=== PATIENT | female | born 1970 | race Caucasian/White ===

== ENCOUNTER 2018-03-13 17:31 | Emergency (ER) | payer MEDICAID ==
[~2018-03-13] VITALS: Ht 149.9 cm; Wt 86.2 kg
[~2018-03-13 17:31] MED LIST: ACEDIPPM PO; ASPI325 PO; ATEN25 PO; Adipex-P37.5 MG PO; CIPR500 PO; CYCL10 PO; ESOM20; HYDMOR2 PO; HYDMOR4 PO; IBUP400 PO; KETO10 PO; OMEP40CA12 PO; OXYACE7.5T PO; PROM25 PO; RXHYDMOR2 PO; RXOXYACE PO; TAMS.4ER PO; TRAM50 PO; [UNRECOGNIZED DRUG - OTHER] PO
[2018-03-13 17:45] LABS: Source, Urine Clean Catch
[2018-03-13 17:48] LABS: Bilirubin, Urine Neg (Neg); Blood, Urine 2+ (Neg); Glucose Qualitative, Urine Neg (Neg); Ketones, Urine Neg (Neg); Leukocyte Esterase, Urine 2+ (Neg); Nitrite, Urine Neg (Neg); Protein, Urine 2+ (Neg); Specific Gravity, Urine 1.025 (1.003-1.022); Urobilinogen, Urine NORM (Normal)
[2018-03-13 17:54] LABS: Color, Urine Yellow (P-Yellow)
[2018-03-13 17:56] LABS: Bacteria Few /hpf; Squamous Epithelial Cells Few /hpf (Few)
[2018-03-13 17:57] LABS: Appearance, Urine Clear (Clear)
[2018-03-13 18:18] LABS: BASOPHILS ABSOLUTE AUTO 0.04 K/mm3 (0.00-0.23); BASOPHILS PERCENT AUTO 1 % (0-2); EOSINOPHILS ABSOLUTE AUTO 0.16 K/mm3 (0.00-0.68); EOSINOPHILS PERCENT AUTO 2 % (0-6); Hematocrit 43.9 % (33.0-51.0); Hemoglobin 14.9 g/dL (11.5-16.0); IMMATURE GRAN ABSOLUTE AUTO 0.01 K/mm3 (0.00-0.10); IMMATURE GRAN PERCENT AUTO 0 % (0-1); LYMPHOCYTES ABSOLUTE AUTO 1.99 K/mm3 (0.84-5.20); LYMPHOCYTES PERCENT AUTO 29 % (21-46); MONOCYTES ABSOLUTE AUTO 0.38 K/mm3 (0.16-1.47); MONOCYTES PERCENT AUTO 6 % (4-13); Mean Corpuscular HGB 30.3 pg (26.0-34.0); Mean Corpuscular HGB Conc 33.9 g/dL (31.5-36.5); Mean Corpuscular Volume 89 fL (80-100); Mean Platelet Volume 9.4 fL (9.1-12.4); NEUTROPHILS ABSOLUTE AUTO 4.32 K/mm3 (1.96-9.15); NEUTROPHILS PERCENT AUTO 63 % (41-73); Platelet Count 225 K/mm3 (150-400); RDW Coefficient Variation 11.9 % (11.7-14.2); RDW Standard Deviation 38.6 fL (35.1-46.3); Red Blood Cell Count 4.92 M/mm3 (3.80-5.20)
[2018-03-13 18:38] LABS: Alanine Aminotransfer (ALT/SGP 35 U/L (12-78); Albumin, Blood 3.9 g/dL (3.4-5.0); Albumin/Globulin Ratio 1.1 (0.8-1.8); Alk Phos 74 U/L (50-136); Anion Gap 10 mmol/L (6-16); Aspartate Aminotrans (AST/SGOT 10 U/L (12-37); Bilirubin, Total 1.3 mg/dL (0.1-1.0); Blood Urea Nitrogen 15 mg/dL (8-24); Bun/Creatinine Ratio 15.6 (12.0-20.0); CO2, Blood 25 mmol/L (21-32); Chloride, Blood 110 mmol/L (98-108); Creatinine, Blood 0.96 mg/dL (0.40-1.00); Globulin, Blood 3.6 g/dL (2.2-4.0); Glomerular Filtration Rate >60 (60-); Glucose, Blood 127 mg/dL (70-99); Potassium, Blood 3.7 mmol/L (3.5-5.5); Sodium, Blood 145 mmol/L (136-145); Total Protein, Blood 7.5 g/dL (6.4-8.2)
[2018-03-13] MEDS ORDERED: COMPAZINE10 MG PO (19:49)
[2018-03-13] MEDS ORDERED: Percocet 5-3251 EACH PO (19:49)
[2018-03-13] MEDS ORDERED: KETO10 PO (19:49)
[2018-03-13] MEDS ORDERED: Flomax0.4 MG PO (19:49)
== END 2018-03-13 20:52 | disposition home or self-care (01) ==
LOC: ER 17:31
PROVIDERS: Emergency Medicine
DX: N13.2 Hydronephrosis with renal and ureteral calculous obstruction (principal); I10 Essential (primary) hypertension
CPT/HCPCS: 36415; 74176; 80053; 81001; 81025; 85025; 87086; 96374; 96375; 96376; 99284; J1885; J2405; J3010

== ENCOUNTER 2022-01-17 10:31 | Emergency (ER) | payer OTHER ==
[~2022-01-17] VITALS: Ht 149.9 cm; Wt 101.6 kg
[~2022-01-17 10:31] MED LIST changes: +COMPAZINE10 MG PO; +Flomax0.4 MG PO; +Percocet 5-3251 EACH PO
[2022-01-17 11:13] LABS: BASOPHILS ABSOLUTE AUTO 0.02 K/mm3 (0.00-0.23); BASOPHILS PERCENT AUTO 0 % (0-2); EOSINOPHILS ABSOLUTE AUTO 0.01 K/mm3 (0.00-0.68); EOSINOPHILS PERCENT AUTO 0 % (0-6); Hematocrit 41.3 % (33.0-51.0); Hemoglobin 14.1 g/dL (11.5-16.0); IMMATURE GRAN ABSOLUTE AUTO 0.02 K/mm3 (0.00-0.10); IMMATURE GRAN PERCENT AUTO 0 % (0-1); LYMPHOCYTES ABSOLUTE AUTO 1.38 K/mm3 (0.84-5.20); LYMPHOCYTES PERCENT AUTO 27 % (21-46); MONOCYTES ABSOLUTE AUTO 0.28 K/mm3 (0.16-1.47); MONOCYTES PERCENT AUTO 6 % (4-13); Mean Corpuscular HGB 30.9 pg (26.0-34.0); Mean Corpuscular HGB Conc 34.1 g/dL (31.5-36.5); Mean Corpuscular Volume 91 fL (80-100); Mean Platelet Volume 9.6 fL (9.1-12.4); NEUTROPHILS ABSOLUTE AUTO 3.32 K/mm3 (1.96-9.15); NEUTROPHILS PERCENT AUTO 66 % (41-73); Platelet Count 192 K/mm3 (150-400); RDW Coefficient Variation 11.6 % (11.7-14.2); RDW Standard Deviation 38.6 fL (35.1-46.3); Red Blood Cell Count 4.56 M/mm3 (3.80-5.20); White Blood Cell Count 5.03 K/mm3 (4.00-11.30)
[2022-01-17 11:36] LABS: Alanine Aminotransfer (ALT/SGP 42 U/L (12-78); Albumin, Blood 3.8 g/dL (3.4-5.0); Alk Phos 90 U/L (50-136); Anion Gap 7 mmol/L (6-16); Aspartate Aminotrans (AST/SGOT 13 U/L (12-37); Bilirubin, Total 0.9 mg/dL (0.1-1.0); Blood Urea Nitrogen 22 mg/dL (8-24); Bun/Creatinine Ratio 24.5 (12.0-20.0); CO2, Blood 26 mmol/L (21-32); Calcium, Blood 9.5 mg/dL (8.5-10.1); Chloride, Blood 106 mmol/L (98-108); Globulin, Blood 3.7 g/dL (2.2-4.0); Glomerular Filtration Rate >60 (60-); Glucose, Blood 132 mg/dL (70-99); Potassium, Blood 4.5 mmol/L (3.5-5.5); Sodium, Blood 139 mmol/L (136-145); Total Protein, Blood 7.5 g/dL (6.4-8.2)
[2022-01-17 12:11] LABS: Source, Urine Clean Catch
[2022-01-17 12:20] LABS: Appearance, Urine Clear (Clear); Bilirubin, Urine Neg (Neg); Blood, Urine 5+ (Neg); Color, Urine Yellow (P-Yellow); Glucose Qualitative, Urine Neg (Neg); Ketones, Urine Neg (Neg); Leukocyte Esterase, Urine Neg (Neg); Nitrite, Urine Neg (Neg); Protein, Urine 2+ (Neg); Specific Gravity, Urine 1.025 (1.003-1.022); Urobilinogen, Urine NORM (Normal)
[2022-01-17 12:38] LABS: Red Blood Cells, Urine 25-50 /hpf (0-2); Squamous Epithelial Cells Few /hpf (Few)
[2022-01-17 12:40] LABS: Bacteria Few /hpf; Mucus Light (0-Heavy)
[2022-01-17 12:41] LABS: Hyaline Casts 0-2 /lpf (0-2)
[2022-01-17] MEDS ORDERED: Percocet 5-3251 EACH PO (14:10)
== END 2022-01-17 14:23 | disposition home or self-care (01) ==
LOC: ER 10:31
PROVIDERS: Physician Assistant
DX: N13.2 Hydronephrosis with renal and ureteral calculous obstruction (principal); I10 Essential (primary) hypertension
CPT/HCPCS: 36415; 76770; 80053; 81001; 85025; 96372; 96374; 96375; 96376; 99284-25; J1170; J1885; J2405; J7030

== ENCOUNTER → 2022-04-16 | Outpatient (CLI) | payer OTHER ==
[2022-04-29 20:08] LABS: BRUSHITE 5.62 ratio (0.00-3.00); CALCIUM OXALATE 6.87 ratio (0.00-6.00); CALCIUM, URINE 20.4 mg/dL (Not Estab.); CHLORIDE URINE 104 (38-210); CITRIC ACID (CITRATE) 295 mg/L (Not Estab.); CITRIC ACID(CITRATE) 295 mg/24 hr (320-1240); CREATININE, URINE 103.1 mg/dL (Not Estab.); MONOSODIUM URATE 7.47 ratio (0.00-4.00); OSMOLALITY, URINE 703 (300-900); SODIUM, URINE 134 (39-258); SODIUM, URINE 134 mmol/L (Not Estab.); URINE VOLUME 1000 mL/24 hr (600-1600); URINE VOLUME (PRESERVATIVE) 1000 mL/24 hr (600-1600)
== END | disposition home or self-care (01) ==
LOC: LAB SHORT 05:00 → LAB 05:00
PROVIDERS: Physician Assistant Medical
DX: N13.2 Hydronephrosis with renal and ureteral calculous obstruction (principal)
CPT/HCPCS: 81003; 82131; 82140; 82340; 82436; 82507; 82570; 83735; 83935; 83945; 84105; 84133; 84300; 84392; 84560

== ENCOUNTER 2023-03-04 12:53 | Emergency (ER) | payer OTHER ==
[~2023-03-04] VITALS: Ht 149.9 cm; Wt 111.1 kg
[2023-03-04 13:13] VITALS: BP 198/103
[2023-03-04 13:37] LABS: Source, Urine Clean Catch
[2023-03-04 13:56] LABS: Appearance, Urine Clear (Clear); Bilirubin, Urine Neg (Neg); Blood, Urine Neg (Neg); Color, Urine Yellow (P-Yellow); Glucose Qualitative, Urine Neg (Neg); Ketones, Urine Neg (Neg); Leukocyte Esterase, Urine Neg (Neg); Nitrite, Urine Neg (Neg); Protein, Urine Neg (Neg); Urobilinogen, Urine NORM (Normal)
[2023-03-04 14:06] LABS: BASOPHILS ABSOLUTE AUTO 0.04 K/mm3 (0.00-0.23); BASOPHILS PERCENT AUTO 1 % (0-2); EOSINOPHILS ABSOLUTE AUTO 0.16 K/mm3 (0.00-0.68); EOSINOPHILS PERCENT AUTO 3 % (0-6); Hematocrit 42.4 % (33.0-51.0); Hemoglobin 14.5 g/dL (11.5-16.0); IMMATURE GRAN ABSOLUTE AUTO 0.01 K/mm3 (0.00-0.10); IMMATURE GRAN PERCENT AUTO 0 % (0-1); LYMPHOCYTES ABSOLUTE AUTO 1.93 K/mm3 (0.84-5.20); LYMPHOCYTES PERCENT AUTO 34 % (21-46); MONOCYTES ABSOLUTE AUTO 0.39 K/mm3 (0.16-1.47); MONOCYTES PERCENT AUTO 7 % (4-13); Mean Corpuscular HGB Conc 34.2 g/dL (31.5-36.5); Mean Corpuscular Volume 88 fL (80-100); Mean Platelet Volume 9.7 fL (9.1-12.4); NEUTROPHILS ABSOLUTE AUTO 3.08 K/mm3 (1.96-9.15); NEUTROPHILS PERCENT AUTO 55 % (41-73); Platelet Count 195 K/mm3 (150-400); RDW Standard Deviation 38.9 fL (35.1-46.3); Red Blood Cell Count 4.84 M/mm3 (3.80-5.20); White Blood Cell Count 5.61 K/mm3 (4.00-11.30)
[2023-03-04 14:09] LABS: Albumin, Blood 3.8 g/dL (3.4-5.0); Bilirubin, Total 0.8 mg/dL (0.1-1.0); Bun/Creatinine Ratio 17.6 (12.0-20.0); Calcium, Blood 9.2 mg/dL (8.5-10.1); Creatinine, Blood 0.85 mg/dL (0.40-1.00); Globulin, Blood 3.7 g/dL (2.2-4.0); Potassium, Blood 3.8 mmol/L (3.5-5.5); Total Protein, Blood 7.5 g/dL (6.4-8.2)
== END 2023-03-04 18:15 | disposition home or self-care (01) ==
LOC: ER 12:53
PROVIDERS: Emergency Medicine
DX: R10.32 Left lower quadrant pain (principal); I10 Essential (primary) hypertension; E11.9 Type 2 diabetes mellitus without complications; Z87.442 Personal history of urinary calculi; Z79.899 Other long term (current) drug therapy
CPT/HCPCS: 74177; 80053; 81003; 83690; 85025; Q9967

== ENCOUNTER 2024-04-02 08:44 | Emergency (ER) | payer OTHER ==
[~2024-04-02] VITALS: Ht 152.4 cm; Wt 81.7 kg
[2024-04-02] MEDS ORDERED: Lidocaine 2% Viscous Soln 15 ML UDC PO ONE (09:50)
[2024-04-02] MEDS ORDERED: Mag Hydrox/AL Hydrox/Simeth 30 ML UDC PO PRN (09:50)
[2024-04-02] MEDS ORDERED: Atropine/Scopalam/Hyoscam/PB 5 ML UDC PO ONE (09:55)
[2024-04-02 10:52] LABS: BASOPHILS ABSOLUTE AUTO 0.03 K/mm3 (0.00-0.23); BASOPHILS PERCENT AUTO 1 % (0-2); EOSINOPHILS ABSOLUTE AUTO 0.27 K/mm3 (0.00-0.68); EOSINOPHILS PERCENT AUTO 5 % (0-6); Hematocrit 40.9 % (33.0-51.0); IMMATURE GRAN ABSOLUTE AUTO 0.02 K/mm3 (0.00-0.10); IMMATURE GRAN PERCENT AUTO 0 % (0-1); LYMPHOCYTES ABSOLUTE AUTO 1.82 K/mm3 (0.84-5.20); LYMPHOCYTES PERCENT AUTO 33 % (21-46); MONOCYTES ABSOLUTE AUTO 0.28 K/mm3 (0.16-1.47); MONOCYTES PERCENT AUTO 5 % (4-13); Mean Corpuscular HGB 31.4 pg (26.0-34.0); Mean Corpuscular HGB Conc 34.2 g/dL (31.5-36.5); Mean Corpuscular Volume 92 fL (80-100); Mean Platelet Volume 10.5 fL (9.1-12.4); NEUTROPHILS ABSOLUTE AUTO 3.17 K/mm3 (1.96-9.15); NEUTROPHILS PERCENT AUTO 57 % (41-73); Platelet Count 175 K/mm3 (150-400); RDW Coefficient Variation 12.1 % (11.7-14.2); RDW Standard Deviation 40.4 fL (35.1-46.3); Red Blood Cell Count 4.46 M/mm3 (3.80-5.20); White Blood Cell Count 5.59 K/mm3 (4.00-11.30)
[2024-04-02 11:06] LABS: Albumin, Blood 3.9 g/dL (3.4-5.0); Albumin/Globulin Ratio 1.1 (0.8-1.8); Bilirubin, Total 1.9 mg/dL (0.1-1.0); Bun/Creatinine Ratio 8.9 (12.0-20.0); Calcium, Blood 9.2 mg/dL (8.5-10.1); Creatinine, Blood 1.01 mg/dL (0.40-1.00); Globulin, Blood 3.4 g/dL (2.2-4.0); Potassium, Blood 3.9 mmol/L (3.5-5.5); Total Protein, Blood 7.3 g/dL (6.4-8.2)
[2024-04-02 12:08] VITALS: BP 128/74
== END 2024-04-02 12:09 ==
LOC: ER 08:44
PROVIDERS: Family Medicine
DX: K44.9 Diaphragmatic hernia without obstruction or gangrene (principal); K21.9 Gastro-esophageal reflux disease without esophagitis; Z79.899 Other long term (current) drug therapy
CPT/HCPCS: 80053; 83690; 85025; 93005; 93010; 99284-25; A9270

== ENCOUNTER 2024-12-01 01:39 | Observation (INO) | payer OTHER ==
[~2024-12-01] VITALS: Ht 149.9 cm; Wt 100.7 kg
[2024-12-01 02:20] LABS: BASOPHILS ABSOLUTE AUTO 0.01 K/mm3 (0.00-0.23); BASOPHILS PERCENT AUTO 0 % (0-2); EOSINOPHILS ABSOLUTE AUTO 0.03 K/mm3 (0.00-0.68); EOSINOPHILS PERCENT AUTO 1 % (0-6); Hematocrit 41.6 % (33.0-51.0); Hemoglobin 14.2 g/dL (11.5-16.0); IMMATURE GRAN PERCENT AUTO 0 % (0-1); LYMPHOCYTES PERCENT AUTO 40 % (21-46); MONOCYTES ABSOLUTE AUTO 0.27 K/mm3 (0.16-1.47); MONOCYTES PERCENT AUTO 7 % (4-13); Mean Corpuscular HGB 30.5 pg (26.0-34.0); Mean Corpuscular HGB Conc 34.1 g/dL (31.5-36.5); Mean Corpuscular Volume 89 fL (80-100); NEUTROPHILS ABSOLUTE AUTO 1.99 K/mm3 (1.96-9.15); NEUTROPHILS PERCENT AUTO 52 % (41-73); Platelet Count 153 K/mm3 (150-400); RDW Coefficient Variation 12.3 % (11.7-14.2); RDW Standard Deviation 40.1 fL (35.1-46.3); Red Blood Cell Count 4.66 M/mm3 (3.80-5.20)
[2024-12-01 02:45] LABS: Albumin, Blood 3.7 g/dL (3.4-5.0); Bilirubin, Total 1.1 mg/dL (0.1-1.0); Bun/Creatinine Ratio 15.4 (12.0-20.0); Calcium, Blood 9.3 mg/dL (8.5-10.1); Creatinine, Blood 0.85 mg/dL (0.40-1.00); Globulin, Blood 3.7 g/dL (2.2-4.0); Potassium, Blood 3.9 mmol/L (3.5-5.5); Total Protein, Blood 7.4 g/dL (6.4-8.2)
[2024-12-01 02:51] LABS: D-Dimer, Quantitative 0.42 mg/L FEU (0.00-0.52); International Normalized Ratio 0.94; Prothrombin Time Results 10.1 Sec (9.7-11.5)
[2024-12-01 03:14] LABS: CORONAVIRUS COVID-19 AG Negative (NEGATIVE); INFLUENZA A AG Positive (NEGATIVE); INFLUENZA B AG Negative (NEGATIVE)
[2024-12-01] MEDS ORDERED: FLU VACC TS2024-25(6MOS UP)/PF 45 MCG/0.5 ML SYRINGE IM ONE (04:15)
[2024-12-01] MEDS ORDERED: Nitroglycerin 0.4 MG SUBL SL PRN (04:15)
[2024-12-01] MEDS ORDERED: Ondansetron HCl 2 MG / ML 2ML Vial IV PRN (04:15)
[2024-12-01] MEDS ORDERED: Oseltamivir Phosphate 75 MG Cap PO SCH (05:00)
[2024-12-01] MEDS ORDERED: Mag Hydrox/Al Hydrox/Simeth 18 ML,Lidocaine 2% Viscous Soln 9 ML,Atropine/Scopalam/Hyos... PO ONE (05:00)
[2024-12-01] MEDS ORDERED: Pantoprazole Sodium 40 MG Injection IV SCH (06:00)
[2024-12-01 06:11] VITALS: BP 140/87
[2024-12-01 06:14] LABS: C-REACTIVE PROTEIN, EXT RANGE 3.68 mg/dL (0.000-0.300)
[2024-12-01 07:44] VITALS: BP 139/86
[2024-12-01] MEDS ORDERED: Lactated Ringer's 1,000 ML IV ONE ×2 (07:55→08:10)
[2024-12-01] MEDS ORDERED: CATAPRES0.1 MG PO (10:38)
[2024-12-01] MEDS ORDERED: ERGO50000 PO (10:39)
[2024-12-01] MEDS ORDERED: ALLO100 PO (10:39)
[2024-12-01] MEDS ORDERED: NITR.4SL SL (10:39)
[2024-12-01] MEDS ORDERED: Buspirone HCl15 MG PO (10:39)
[2024-12-01] MEDS ORDERED: LOSA50 PO (10:39)
[2024-12-01] MEDS ORDERED: Aspir 8181 MG PO (10:40)
[2024-12-01] MEDS ORDERED: POTA10T PO (10:40)
[2024-12-01] MEDS ORDERED: AMLO5 PO (10:41)
[2024-12-01] MEDS ORDERED: ROSUVASTATIN CAL5 MG PO (10:41)
[2024-12-01] MEDS ORDERED: GABA300T24 PO (10:41)
[2024-12-01] MEDS ORDERED: PANT40 PO (10:42)
[2024-12-01] MEDS ORDERED: FAMO20 PO (10:42)
[2024-12-01] MEDS ORDERED: OZEMPIC1 MG/0.72 SC (10:42)
[2024-12-01] MEDS ORDERED: Mag Hydrox/Al Hydrox/Simeth 18 ML,Lidocaine 2% Viscous Soln 9 ML,Atropine/Scopalam/Hyos... PO PRN (11:00)
[2024-12-01 15:29] VITALS: BP 124/74
[2024-12-01] MEDS ORDERED: Mag Hydrox/AL Hydrox/Simeth 30 ML UDC PO PRN (15:55)
[2024-12-01] MEDS ORDERED: Mag Hydrox/Al Hydrox/Simeth 72 ML,Lidocaine 2% Viscous Soln 36 ML,Atropine/Scopalam/Hyo... PO PRN (16:10)
--- NOTE | 2024-12-01 18:44 | NUR ---
SHIFT SUMMARY PATIENT A/OX4, ABLE TO MAKE NEEDS KNONWJ. INDEPENDENT IN ROOM. PLEASANT AND COOPERATIVE WITH CARE. TELEMETRY IN PLACE THIS AM, ORDER DCed. 1 BAG OF LR INFUSED THIS SHIFT, CURRENTLY INFUSING. PATIENT TOLERATING CLEAR LIQUI DIET. ABDOMNINAL ULTRASOUND AND CT OBTAINED. PATIENT COMPLAINING OF "CHEST PAIN" AND EPIGASTRIC PAIN, MD NOTIFIED AND GI COCKTAIL ORDERED PRN, WHICH IS EFFECTIVE IN ALLEVIATING PAIN. NITRO ALSO ADMINISTERED PRIOR TO GI COCKTAIL WHICH WAS INEFFECTIVE. AT BEDSIDE MOST OF SHIFT. NO OTHER CONCERNS AT THIS TIME.
[2024-12-01 20:01] VITALS: BP 130/74
[2024-12-01] MEDS ORDERED: BusPIRone HCl 5 MG Tab PO SCH (21:00)
[2024-12-02 04:50] VITALS: BP 133/82
[2024-12-02] MEDS ORDERED: Acetaminophen 325 MG TABLET PO PRN (05:00)
[2024-12-02 05:46] LABS: Albumin, Blood 3.4 g/dL (3.4-5.0); Bilirubin, Total 1.6 mg/dL (0.1-1.0); Bun/Creatinine Ratio 13.3 (12.0-20.0); Calcium, Blood 8.9 mg/dL (8.5-10.1); Creatinine, Blood 0.75 mg/dL (0.40-1.00); Globulin, Blood 3.4 g/dL (2.2-4.0); Potassium, Blood 3.8 mmol/L (3.5-5.5); Total Protein, Blood 6.8 g/dL (6.4-8.2)
[2024-12-02 07:18] VITALS: BP 144/87
--- NOTE | 2024-12-02 07:20 | NUR ---
SHIFT SUMMARY PT HAS BEEN RESTING IN BED COMFORTABLY OVERNIGHT. PT HAS BEEN AOX4, CALM AND COOPERATIVE. PT ABLE TO MAKE NEEDS KNOWN. SHE HAS BEEN INDEPENDENTLY AMBULATING TO RESTROOM. PT HAD NO COMPLAINTS OVERNIGHT. PT HAD UNEVENTFUL EVENING.
[2024-12-02] MEDS ORDERED: AmLODIPine Besylate 5 MG Tab PO SCH (09:00)
[2024-12-02] MEDS ORDERED: Atenolol 25 MG Tab PO SCH (09:00)
[2024-12-02] MEDS ORDERED: Enoxaparin 40 MG/0.4 ML SYR SC SCH (09:00)
[2024-12-02] MEDS ORDERED: ATEN50 PO (10:46)
[2024-12-02] MEDS ORDERED: CREON DR 12,001 EACH PO (10:46)
[2024-12-02] MEDS ORDERED: OSEL75CA PO (10:46)
[2024-12-02] MEDS ORDERED: ALLEGRA ALLERG180 MG PO (11:09)
[2024-12-02] MEDS ORDERED: MONT10T PO (11:09)
--- NOTE | 2024-12-02 12:44 | NUR ---
SHIFT SUMMARY PATIENT A/OX4, ABLE TO MAKE NEEDS KNOWN. PLEASANT AND COOPERATIVE WITH CARE. INDEPENDENT IN ROOM. NEW MEDICATIONS DISCUSSED AND DISCONTINUED MEDICATIONS DISCUSSED WITH PATIENT AND AGREEABLE TO PLAN. DR. HEREDIA NOTIFIED OF PATIENT'S REQUEST TO CONTINUE ALLERGY MEDICATIONS AT HOME. STATES OKAY TO CONTINUE ALLERGY MEDICATIONS. ANTIGEN FLUE TEST OBTAINED PER LAB REQUEST FOR STATE REQUIREMENTS, PATIENT TOLERATED WELL. [facility]. IV REMOVED PRIOR TO DISCHARGE. PAT[facility] NO OTHER CONCERNS AT THIS TIME.
== END 2024-12-02 11:36 | disposition home or self-care (01) ==
LOC: ER 01:39 → ERHOLD 01:40 → MEDS 01:40
PROVIDERS: Emergency Medicine; Internal Medicine; ADMIT Internal Medicine
DX: R07.89 Other chest pain (principal); R10.12 Left upper quadrant pain; I10 Essential (primary) hypertension; E78.5 Hyperlipidemia, unspecified; K76.0 Fatty (change of) liver, not elsewhere classified; E11.9 Type 2 diabetes mellitus without complications; J10.1 Influenza due to other identified influenza virus with other respiratory manifestations; K21.9 Gastro-esophageal reflux disease without esophagitis; E66.01 Morbid (severe) obesity due to excess calories; Z79.899 Other long term (current) drug therapy
CPT/HCPCS: 36415; 71046; 74170; 76705; 80053; 82947; 83615; 83690; 84484; 85025; 85379; 85610; 85730; 86140; 87428-QW; 93005; 93010; 96372; 96374; 96376; 99285-25; A9270; G0378; J1650; J2470; J7120; Q9967

== ENCOUNTER → 2025-01-21 | Outpatient (CLI) | payer OTHER ==
[~2025-01-21] MED LIST changes: +ALLEGRA ALLERG180 MG PO; +ALLO100 PO; +AMLO5 PO; +ATEN50 PO; +Aspir 8181 MG PO; +Buspirone HCl15 MG PO; +CATAPRES0.1 MG PO; +CREON DR 12,001 EACH PO; +ERGO50000 PO; +FAMO20 PO; +GABA300T24 PO; +LOSA50 PO; +MONT10T PO; +NITR.4SL SL; +OSEL75CA PO; +OZEMPIC1 MG/0.72 SC; +PANT40 PO; +POTA10T PO; +ROSUVASTATIN CAL5 MG PO
[2025-01-26 16:07] LABS: PANCREATIC ELASTASE,FECAL >800 ug/g (>=100)
== END ==
LOC: LAB SHORT 08:41 → LAB 08:41
DX: K52.9 Noninfective gastroenteritis and colitis, unspecified (principal); R74.8 Abnormal levels of other serum enzymes
CPT/HCPCS: 82653